=== PATIENT | female | born 1995 | race Caucasian/White ===

== ENCOUNTER 2020-02-25 19:29 | Emergency (ER) | payer OTHER, SELFPAY ==
[2020-02-25 19:38] VITALS: BP 122/74; PULSE 109; RESP 16; TEMP 37.1; O2SAT 99
[2020-02-25] MEDS: KETOROLAC 30 MG/ML VIAL (*BKC) IV PUSH (20:24)
[2020-02-25] MEDS: METOCLOPRAMIDE HCL INJ 10 MG/2 ML VIAL IV PUSH (20:24)
[2020-02-25] MEDS: SODIUM CHLORIDE 0.9% IV 1,000 ML 999 ML IV CONT (20:24)
--- NOTE | 2020-02-25 20:29 | ED.HA ---
HPI - Headache General Chief Complaint: Headache Stated Complaint: migraine headache x 2 weeks Time Seen by Provider: 02/25/20 19:50 History of Present Illness HPI Narrative: Patient is a 25-year-old female who presents ER with headache. Ongoing for last week and a half. Right-sided and sharp and throbbing. Settles behind her right eye. Sensitive to light and sound. Has history of migraine headache. Saw her primary care doctor who gave her some steroids and started her on amiovig. No fevers or chills or sweats. No upper respiratory or abdominal infectious type symptoms. Patient has had nausea and vomiting. Related Data Home Medications Medication Instructions Recorded Confirmed buspirone mg 02/25/20 pwtfcsfiot-rgajnaexjwsmn-tclv tablet 02/25/20 erenumab-aooe [Aimovig mg SUBCUT 02/25/20 Autoinjector] fluoxetine mg 02/25/20 omeprazole 02/25/20 ondansetron 02/25/20 rimegepant [Nurtec ODT] mg 02/25/20 venlafaxine mg PO 02/25/20 Allergies Allergy/AdvReac Type Severity Reaction Status Date / Time latex Allergy Mild Unknown Verified 02/25/20 19:42 Review of Systems Review of Systems: All systems reviewed & are unremarkable except as noted in HPI and below Constitutional: Constitutional: Denies chills, Denies fever(s) and Denies weakness Eyes: Eyes: Denies change in vision and Reports photophobia ENT: Denies nasal congestion and Denies sore throat Gastrointestinal: Gastrointestinal: Denies abdominal pain, Denies diarrhea, Reports nausea and Reports vomiting Genitourinary: Genitourinary: Denies nocturia and Denies dysuria Neurologic: Reports headache(s), Denies focal weakness and Denies numbness PMFSH Past Medical History Medical History (Updated 02/25/20 @ 22:44 by Rakesh Todd MD) Migraine headache Surgical History Surgical History (Updated 02/25/20 @ 20:34 by Rakesh Todd MD) No pertinent past surgical history Family History Family History (Updated 08/02/11 @ 09:48 by DOCTOR UNKNOWN) Other Cerebrovascular accident Diabetes mellitus Family history of migraine headaches Hypertension Social History Social History (Updated 02/25/20 @ 20:34 by Rakesh Todd MD) Smoking status: Current every day smoker Substance use type: marijuana Gender identity (if verbalized by the patient): Female Exam Narrative: Exam Narrative: GENERAL: Uncomfortable-appearing, well-nourished, and in no acute distress. HEAD: Normocephalic, atraumatic. EYES: PERRLA and EOMI. sensitive to light ENT: Mucous membranes moist. CHEST: Clear to auscultation. No respiratory distress. HEART: Regular rate and rhythm. No murmur heard. Normal peripheral pulses. NEURO: Alert and oriented x3. PSYCH: Normal mood and affect. Course Course Emergency Course: Headache improved with Reglan and Toradol. Comfortable with discharge home. Vital Signs Vital signs: Vital Signs Temperature 98.8 F 02/25/20 19:38 Pulse Rate 109 H 02/25/20 19:38 Respiratory Rate 16 02/25/20 19:38 Blood Pressure 122/74 02/25/20 19:38 Pulse Oximetry 99 02/25/20 19:38 Temperature 98.8 F 02/25/20 19:38 Pulse Rate 67 02/25/20 22:29 Respiratory Rate 12 02/25/20 22:29 Blood Pressure 105/71 02/25/20 22:29 Pulse Oximetry 97 02/25/20 22:29 Discharge Plan Discharge Clinical Impression: Migraine Patient Disposition: Home, Self-Care Condition: Stable Instructions: Migraine Headache (ED) Additional Instructions: Return the ER if you have chest pain or shortness of breath, you cannot keep down food or water, you have fever over 100.4 ?F, you have additional concerns. Prescriptions: No Action buspirone 5 mg tablet RF: 0 venlafaxine 150 mg capsule,extended release 24hr PO RF: 0 chknoosszv-rpqilpvdpjpax-kmvg 50-325-40 mg tablet RF: 0 ondansetron 8 mg tablet,disintegrating RF: 0 omeprazole 20 mg capsule,delayed release(/EC
[2020-02-25 22:29] VITALS: BP 105/71; PULSE 67; RESP 12; O2SAT 97
[2020-02-25 22:48] VITALS: BP 121/64; PULSE 74; RESP 19; TEMP 36.3; O2SAT 100
== END 2020-02-25 22:49 | disposition home or self-care (01) ==
PROVIDERS: Emergency Provider Emergency Medicine; PCP Family Medicine
DX: G43.909 Migraine, unspecified, not intractable, without status migrainosus (principal)
CPT/HCPCS: 96361; 96374; 96375; 99284; J1885; J2765; J7030

== ENCOUNTER 2021-04-21 15:31 | Emergency (ER) | payer OTHER, SELFPAY ==
[2021-04-21 15:33] VITALS: BP 132/84; PULSE 83; RESP 17; TEMP 36.5; O2SAT 100
[2021-04-21] MEDS: SODIUM CHLORIDE 0.9% IV 1,000 ML 999 ML IV CONT (18:23)
[2021-04-21] MEDS: diphenhydrAMINE HCl INJ 50 MG/ML VIAL 25 MG IV PUSH (18:23)
[2021-04-21] MEDS: METOCLOPRAMIDE HCL INJ 10 MG/2 ML VIAL IV PUSH (18:24)
[2021-04-21] MEDS: KETOROLAC 30 MG/ML VIAL (*BKC) IV PUSH (18:27)
--- NOTE | 2021-04-21 18:40 | ED.HA ---
HPI - Headache General Chief Complaint: Headache Stated Complaint: Headache x1 week Time Seen by Provider: 04/21/21 17:45 History of Present Illness HPI Narrative: Patient is a 26-year-old female with history of migraines who presents with a right-sided headache. Ongoing over the last week. Last week she saw her neurologist and received a Toradol injection she then went to [facility] 6 days ago and received a IV migraine cocktail. Symptoms persisted at home. She was prescribed steroids today but has not yet filled them. She has follow-up with her neurologist tomorrow. She has no fevers or chills or sweats. No chest pain or chest pressure. She does report some mild nausea. No focal neurologic weakness noted. Patient endorses photophobia. Related Data Home Medications Medication Instructions Recorded Confirmed buspirone mg 02/25/20 oxhshbgllf-wwsevvgtgjpha-oaii tablet 02/25/20 erenumab-aooe [Aimovig mg SUBCUT 02/25/20 Autoinjector] fluoxetine mg 02/25/20 omeprazole 02/25/20 ondansetron 02/25/20 rimegepant [Nurtec ODT] mg 02/25/20 venlafaxine mg PO 02/25/20 Allergies Allergy/AdvReac Type Severity Reaction Status Date / Time latex Allergy Mild Unknown Verified 02/25/20 19:42 Review of Systems Review of Systems: All systems reviewed & are unremarkable except as noted in HPI and below Constitutional: Constitutional: Denies chills, Denies fever(s) and Denies weakness Eyes: Eyes: Reports photophobia Respiratory: Respiratory: Denies cough and Denies dyspnea Gastrointestinal: Gastrointestinal: Denies abdominal pain, Reports nausea and Denies vomiting Neurologic: Denies dizziness, Denies syncope, Reports headache(s), Denies focal weakness and Denies numbness PMFSH Past Medical History Medical History (Updated 04/21/21 @ 20:13 by Rakesh Todd MD) Migraine headache Surgical History Surgical History (Updated 02/25/20 @ 20:34 by Rakesh Tdod MD) No pertinent past surgical history Family History Family History (Updated 08/02/11 @ 09:48 by DOCTOR UNKNOWN) Other Cerebrovascular accident Diabetes mellitus Family history of migraine headaches Hypertension Social History Social History (Updated 02/25/20 @ 20:34 by Rakesh Todd MD) Smoking status: Current every day smoker Substance use type: marijuana Gender identity (if verbalized by the patient): Female Exam Narrative: GENERAL: Laying in bed with sunglasses on in her head covered by hoodie, well-nourished, and in no acute distress. HEAD: Normocephalic, atraumatic. CHEST: Clear to auscultation. No respiratory distress. HEART: Regular rate and rhythm. Normal peripheral pulses. EXTREMITIES: Normal range of motion. No edema. NEURO: Alert and oriented x3. PSYCH: Normal mood and affect. Course Course Emergency Course: Patient treated with Reglan/Benadryl/Toradol/IV fluid. Still some headache so given Solu-Medrol as well as IV acetaminophen. Discharge home with follow-up with her neurologist. Vital Signs Vital signs: Vital Signs Temperature 97.7 F 04/21/21 15:33 Pulse Rate 83 04/21/21 15:33 Respiratory Rate 17 04/21/21 15:33 Blood Pressure 132/84 04/21/21 15:33 Pulse Oximetry 100 04/21/21 15:33 Temperature 97.7 F 04/21/21 15:33 Pulse Rate 83 04/21/21 15:33 Respiratory Rate 17 04/21/21 15:33 Blood Pressure 132/84 04/21/21 15:33 Pulse Oximetry 100 04/21/21 15:33 Discharge Plan Discharge Clinical Impression: Migraine Patient Disposition: Home, Self-Care Condition: Stable Instructions: Migraine Headache (ED) Additional Instructions: Return the ER if you have fever over 100.4 ?F, you cannot keep down food or water, you have focal weakness in arm or leg, you have additional concerns. Prescriptions: No Action buspirone 5 mg tablet RF: 0 venlafaxine 150 mg capsule,extended release 24hr PO RF: 0 butalbital-acetamino
--- NOTE | 2021-04-21 19:40 | PC.NURSE ---
Pt continues to c/o headache, Dr. Todd informed.
[2021-04-21] MEDS: DEXAMETHASONE SOD PHOS INJ 4 MG/ML VIAL 10 MG IV PUSH (19:48)
[2021-04-21 20:30] VITALS: BP 120/82; PULSE 78; RESP 16; O2SAT 100
== END 2021-04-21 20:30 | disposition home or self-care (01) ==
PROVIDERS: Emergency Provider Emergency Medicine
DX: G43.909 Migraine, unspecified, not intractable, without status migrainosus (principal); F17.200 Nicotine dependence, unspecified, uncomplicated
CPT/HCPCS: 96361; 96365; 96375; 99284; J0131; J1100; J1200; J1885; J2765; J7030